=== PATIENT | female | born 1980 | race Caucasian/White ===

== ENCOUNTER 2017-12-13 02:50 | Emergency (ER) | payer BC, MEDICARE ==
[~2017-12-13] VITALS: Ht 170.2 cm; Wt 65.0 kg
[~2017-12-13 02:50] MED LIST: HYDR473S49 PO; PRED20SO PO
[2017-12-13 02:57] VITALS: BP 131/84
[2017-12-13] MEDS ORDERED: IBUP-1984 PO (03:15)
[2017-12-13] MEDS ORDERED: CYCL-1 PO (03:15)
== END 2017-12-13 03:34 | disposition home or self-care (01) ==
LOC: ER 02:50
DX: M62.830 Muscle spasm of back (principal); G43.909 Migraine, unspecified, not intractable, without status migrainosus; Z79.899 Other long term (current) drug therapy; V43.52XA Car driver injured in collision with other type car in traffic accident, initial encounter; Y93.89 Activity, other specified; Y92.89 Other specified places as the place of occurrence of the external cause; Y99.8 Other external cause status
CPT/HCPCS: 99283

== ENCOUNTER 2018-11-20 02:25 | Emergency (ER) | payer MEDICARE, OTHER ==
[~2018-11-20] VITALS: Ht 167.6 cm; Wt 64.5 kg
[~2018-11-20 02:25] MED LIST changes: +CYCL-1 PO
[2018-11-20 02:40] VITALS: BP 129/84
[2018-11-20] MEDS ORDERED: ibuprofen 200mg tablet PO ONE (03:10)
== END 2018-11-20 03:18 | disposition home or self-care (01) ==
LOC: ER 02:26
DX: S60.041A Contusion of right ring finger without damage to nail, initial encounter (principal); G43.909 Migraine, unspecified, not intractable, without status migrainosus; Z79.899 Other long term (current) drug therapy; W22.8XXA Striking against or struck by other objects, initial encounter; Y93.89 Activity, other specified; Y92.89 Other specified places as the place of occurrence of the external cause; Y99.8 Other external cause status
CPT/HCPCS: 29130; 73130; 99283

== ENCOUNTER 2019-10-29 00:28 | Emergency (ER) | payer BC, OTHER ==
[~2019-10-29] VITALS: Ht 167.6 cm; Wt 65.0 kg
[2019-10-29] MEDS ORDERED: divalproex sodium 500mg tablet.DR PO ONE (00:40)
[2019-10-29] MEDS ORDERED: diphenhydrAMINE 50 mg/ml inj IV ONE (00:40)
[2019-10-29] MEDS ORDERED: proCHLORperazine 10 MG/2 ml inj IV PRN (00:40)
[2019-10-29] MEDS ORDERED: HYDROmorphone inj. 0.5 MG/0.5 ML DISP.SYRIN IV ONE ×2 (00:40→02:40)
[2019-10-29] MEDS ORDERED: divalproex sodium 500mg tablet.DR PO SCH (00:40)
[2019-10-29] MEDS ORDERED: magnesium 2GM in 50ml NS 50 ML IV ONE (00:40)
[2019-10-29] MEDS ORDERED: dexamethasone sod phosphate 10mg/ml inj IV STA (00:44)
[2019-10-29] MEDS ORDERED: normal saline 1000ML IV soln IVB ONE (00:45)
[2019-10-29] MEDS ORDERED: DIVA500T9 PO (02:40)
[2019-10-29 03:11] VITALS: BP 103/66
== END 2019-10-29 03:19 | disposition home or self-care (01) ==
LOC: ER 00:28
DX: G43.909 Migraine, unspecified, not intractable, without status migrainosus (principal); Z98.890 Other specified postprocedural states; Z79.899 Other long term (current) drug therapy
CPT/HCPCS: 96365; 96366; 96375; 96376; 99283; J0780; J1100; J1170; J1200; J3475; J7030

== ENCOUNTER 2021-10-18 03:12 | Emergency (ER) | payer BC ==
[~2021-10-18] VITALS: Ht 170.2 cm; Wt 68.2 kg
[2021-10-18] MEDS ORDERED: normal saline 1000ML IV soln IVB ONE (03:40)
[2021-10-18] MEDS ORDERED: TETanus/Pertussis (Acell)/Diphther VAC/PF (Tdap-Adult) 0.5ml syringe IMVAC ONE (03:40)
[2021-10-18] MEDS ORDERED: pantoprazole 40MG/D5 100ML BAG 100 ML IV ONE (03:40)
[2021-10-18] MEDS ORDERED: LIDOcaine 1% W/epiNEPHrine 1:200,000 10ml vial IJ ONE (03:40)
[2021-10-18] MEDS ORDERED: pantoprazole 40MG/NS 100ML BAG 100 ML IV ONE (03:40)
[2021-10-18] MEDS ORDERED: ondansetron/PF 4mg/2ml inj IV ONE (03:40)
[2021-10-18] MEDS ORDERED: LIDOcaine 1% W/epiNEPHrine 1:100,000 20ml vial IJ ONE (03:40)
[2021-10-18] MEDS: morphine 2 MG/ML inj. syringe IV PRN ×3 (04:07→04:44)
[2021-10-18] MEDS ORDERED: proCHLORperazine 10 MG/2 ml inj IV ONE ×2 (04:25→04:30)
[2021-10-18] MEDS ORDERED: LEVO500T90 PO (05:43)
[2021-10-18 06:14] LABS: ALANINE AMINOTRANSFERASE 46 U/L (12-78); ALBUMIN 3.8 G/DL (3.4-5.0); ALBUMIN/GLOBULIN RATIO 0.8 (1.1-1.5); ALKALINE PHOSPHATASE 67 IU/L (46-116); ANION GAP 15 (8-16); ASPARTATE AMINO TRANSFERASE 39 U/L (10-37); BILIRUBIN,TOTAL 0.1 MG/DL (0.1-1.0); BLOOD UREA NITROGEN 8 MG/DL (7-18); BUN/CREATININE RATIO 10.4 (6.6-38.0); CALCIUM 8.8 MG/DL (8.5-10.1); CHLORIDE 103 MMOL/L (99-107); CREATININE 0.77 MG/DL (0.40-0.90); GLUCOSE 127 MG/DL (70-104); POTASSIUM 3.8 MMOL/L (3.5-5.1); SODIUM 141 MMOL/L (135-145); TOTAL CARBON DIOXIDE 22.8 MMOL/L (24-32); TOTAL PROTEIN 8.5 G/DL (6.4-8.2); eGFR 82 ML/MIN
[2021-10-18] MEDS ORDERED: metoclopramide 5 mg/ml inj IV ONE (06:55)
[2021-10-18 07:14] VITALS: BP 109/68
== END 2021-10-18 07:16 | disposition home or self-care (01) ==
LOC: ER 03:12
DX: S02.2XXA Fracture of nasal bones, initial encounter for closed fracture (principal); S01.21XA Laceration without foreign body of nose, initial encounter; R11.0 Nausea; R42 Dizziness and giddiness; G43.909 Migraine, unspecified, not intractable, without status migrainosus; Z98.890 Other specified postprocedural states; Z79.2 Long term (current) use of antibiotics; Z79.899 Other long term (current) drug therapy; Z20.3 Contact with and (suspected) exposure to rabies; X58.XXXA Exposure to other specified factors, initial encounter; Y93.89 Activity, other specified; Y92.89 Other specified places as the place of occurrence of the external cause; Y99.8 Other external cause status
CPT/HCPCS: 12011; 36415; 70450; 80053; 80320; 90471; 90715; 96374; 96375; 99284; C9113; J0780; J2270; J2405; J2765; J7030